=== PATIENT | female | born 1980 | race African-American/Black ===

== ENCOUNTER 2017-03-23 11:08 | Day surgery (SDC) | payer MEDICAID ==
[~2017-03-23 11:08] MED LIST: BUPIVACAINE 0.25% 30 ML SDV ONE; ceFAZolin 2 GM/SWFI 2 GM/20 ML SYR IVP ONE
[2017-03-23] MEDS ORDERED: BUPIVACAINE/EPI 0.5% 30 ML SDV ONE (11:15)
--- NOTE | 2017-03-23 11:53 | PDHPUP ---
History & Physical Update H&P update statement: This history and physical update is based on an assessment of the patient which was completed after admission or registration (within 24 hours), but prior to the surgery/procedure.
[2017-03-23] MEDS ORDERED: ceFAZolin 2 GM/SWFI 20 ML SYR IVP ONE (12:10)
[2017-03-23] MEDS ORDERED: fentaNYL 100 MCG/2 ML INJ ONE ×5 (12:13→14:48)
[2017-03-23] MEDS ORDERED: PROPOFOL 200 MG/20 ML VIAL ONE (12:13)
[2017-03-23] MEDS ORDERED: MIDAZOLAM 2 MG/2 ML VIAL ONE (12:13)
[2017-03-23] MEDS ORDERED: DEXAMETHASONE 4 MG/ML VIAL ONE ×2 (12:15)
[2017-03-23] MEDS ORDERED: METOCLOPRAMIDE 10 MG/2 ML VIAL ONE (12:15)
[2017-03-23] MEDS ORDERED: KETOROLAC 30 MG/1 ML SDV ONE (12:15)
[2017-03-23] MEDS ORDERED: LIDOCAINE 2% 100 MG/5 ML SYR ONE (12:15)
--- NOTE | 2017-03-23 12:15 | PDANEPAE ---
ANE Past Medical History - Cardiovascular History Hx Hypertension: No Hx Arrhythmias: No Hx Chest Pain: No Hx Coronary Artery / Peripheral Vascular Disease: No Hx CHF / Valvular Disease: No Hx Palpitations: No - Pulmonary History Hx COPD: No Hx Asthma/Reactive Airway Disease: No Hx Recent Upper Respiratory Infection: No Hx Oxygen in Use at Home: No Hx Sleep Apnea: No Sleep Apnea Screening Result - Last Documented: Negative Pulmonary History Comment: CURRENTLY HAS MILD COUGH NON PRODUCTIVE SLIGHT ELEVATION IN TEMP TO FU B/4 SURG WITH PCP - Neurologic History Hx Cerebrovascular Accident: No Hx Seizures: No Hx Dementia: No - Endocrine History Hx Diabetes: No - Renal History Hx Renal Disorders: No - Liver History Hx Hepatic Disorders: No - Neurological & Psychiatric Hx Hx Neurological and Psychiatric Disorders: No - Cancer History Hx Cancer: No - Congenital Disorder History Hx Congenital Disorders: No - GI History Hx Gastrointestinal Disorders: No - Chronic Pain History Chronic Pain: Yes (LT KNEE) - Surgical History Prior Surgeries: TONSILLECTOMY ANE Review of Systems Review of Systems: - Exercise capacity METS (RN): 4 METS ANE Patient History - Allergies Allergies/Adverse Reactions: copper Allergy (Verified 03/09/17 16:22) SKIN IRRITATION nickel Allergy (Verified 03/09/17 16:22) SKIN IRRITATION - Home Medications Home Medications: Bcp Implant 03/09/17 [Last Taken Unknown] IBUPROFEN DAILY 03/09/17 [Last Taken 1 Week Ago ~03/16/17] ZYRTEC PRN 03/09/17 [Last Taken 1 Week Ago ~03/16/17] - NPO status NPO Since - Liquids (Date): 03/23/17 NPO Since - Liquids (Time): 09:30 NPO Since - Solids (Date): 03/22/17 NPO Since - Solids (Time): 11:30 - Smoking Hx Smoking Status: Current every day smoker ANE Labs/Vital Signs - Vital Signs Blood Pressure: 103/72 Heart Rate: 93 Respiratory Rate: 18 O2 Sat (%): 96 Height: 157.48 cm Weight: 95.254 kg ANE Physical Exam - Airway Neck exam: FROM Mallampati Score: Class 2 Mouth exam: normal dental/mouth exam - Pulmonary Pulmonary: no respiratory distress - Cardiovascular Cardiovascular: regular rate and rhythym - ASA Status ASA Status: II ANE Anesthesia Plan Anesthesia Plan: general endotracheal anesthesia Regional Anesthesia: single shot NB
[2017-03-23] MEDS ORDERED: NALOXONE HCL 0.4 MG/ML INJ IVP PRN (14:27)
[2017-03-23] MEDS ORDERED: HYDROmorphONE/DILAUDID 1 MG/ML INJ IVP PRN (14:27)
[2017-03-23] MEDS ORDERED: ALBUTEROL 3 ML DEYVIAL IH PRN (14:27)
[2017-03-23] MEDS ORDERED: OXYCODONE/APAP 5/325 TAB PO PRN (14:27)
[2017-03-23] MEDS ORDERED: ACETAMINOPHEN 500 MG TAB PO PRN (14:27)
[2017-03-23] MEDS ORDERED: ONDANSETRON 4 MG/2 ML VIAL IVP PRN (14:27)
[2017-03-23] MEDS ORDERED: MEPERIDINE 25 MG/ML SYR IVP PRN (14:27)
[2017-03-23] MEDS ORDERED: HYDROCODONE/APAP 5/325 TAB PO PRN (14:27)
--- NOTE | 2017-03-23 14:28 | POSTOPPROG ---
Post Op Note Date of Operation: 03/23/17 Surgeon: Thomas Squires Roll Filler: Carlota Anesthesiologist: Bill Anesthesia: GET(General Endotracheal) Pre-op Diagnosis: L ACL tear Post-op Diagnosis: same Indication: above Procedure: L ACL recon and partial lateral meniscus Inf/Abcess present in the surg proc area at time of surgery?: No EBL: 50-100
[2017-03-23] MEDS ORDERED: HYDROCODONE/APAP 5/325 TAB ONE (14:49)
[2017-03-23] MEDS: fentaNYL 100 MCG/2 ML INJ IVP PRN ×3 (14:50→15:10)
[2017-03-23 15:17] VITALS: O2SAT 98
[2017-03-23 15:44] VITALS: BP 129/99; PULSE 101; RESP 22; TEMP 98.8
--- NOTE | 2017-03-23 22:43 | GOP ---
[f rep st] OPERATIVE REPORT DATE OF OPERATION: 03/23/2017 SURGEON: Thomas Squires MD SPLITTING MACHINE OPERATOR: Po Van SA. ANESTHESIA: General. 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 PROCEDURE PERFORMED: 1. Left anterior cruciate ligament reconstruction with hamstrings allograft. 2. Left knee partial lateral meniscectomy with saucerization of discoid meniscus for tear. FINDINGS: SPECIMENS: None. ESTIMATED BLOOD LOSS: 5 mL. INDICATIONS: This is a 36-year-old female who sustained this ACL tear and meniscus injuries. There was concern on her MRI for a lateral meniscus root tear. This proved not to be the case. I discusse d risks and benefits of operative intervention including nerve injury, re-rupture, continued pain, in stability, need for meniscectomy, need for meniscus repair, as well as postop course. She elected to proceed. Informed consent was obtained and all questions answered. She was marked preoperatively. DESCRIPTION OF PROCEDURE: She was taken to the operative suite, sterilely prepped and draped in norm al fashion. Time-out was performed verifying the site, side, location, and there was agreement with the team. The procedure was begun by establishing a lateral portal and then a working portal. Her ACL was obvi ously completely ruptured. The graft was open, thawed on the back table, prepared by my employee relations assistant. I debrided the ACL and defined the footprints. I inspected her lateral compartment, which showed goo d intact articular cartilage. No degenerative changes, as well as an intact meniscus with no menisca l root and this probed stable. Her lateral meniscus was discoid and it was a complete discoid menisc us. She did have a tear through this. I worked through this tear and performed a saucerization of t his, leaving a stable edge around the periphery with alex and biters. I placed the femoral guide and drilled the 11 femoral tunnel with the football scout leaving a bony brid ge. I passed sutures through this. I then drilled a 10.5 tibial tunnel at the tibial footprint, smith ving a bony bridge passing sutures through this. I passed the graft through the medial portal throug h the femur 1st, tightened this and then in the tibia, putting equal amounts of graft in both sides a nd creating appropriate tension. Final tension of this in the knee 30 degrees posterior drawer as we ll as after cycling this. This probed stable. I took final arthroscopic pictures. She was taken to PACU in stable condition. IMPLANTS: Arthrex PTB RT EndoButton and the allograft. COMPLICATIONS: None. DRAINS: None. CONDITION: Stable. /[id number]/MODL
== END 2017-03-23 15:51 | disposition home or self-care (01) ==
LOC: FSGY 11:08
PROVIDERS: ATTEND Orthopaedic Surgery
PROC: 0SBD4ZZ Excision of Left Knee Joint, Percutaneous Endoscopic Approach (ICD-10-PCS; principal; 2017-03-23 12:30)
PROC: 0MQP4ZZ Repair Left Knee Bursa and Ligament, Percutaneous Endoscopic Approach (ICD-10-PCS; principal; 2017-03-23 12:30)
DX: S83.512A Sprain of anterior cruciate ligament of left knee, initial encounter (principal); S83.272A Complex tear of lateral meniscus, current injury, left knee, initial encounter; W54.1XXA Struck by dog, initial encounter; Y99.8 Other external cause status; M25.562 Pain in left knee; F17.210 Nicotine dependence, cigarettes, uncomplicated; M35.7 Hypermobility syndrome
CPT/HCPCS: C1713; C1762; J0171; J0690; J1100; J1885; J2001; J2250; J2704; J2765; J3010